=== PATIENT | female | born 1960 | race Caucasian/White ===

== ENCOUNTER 2018-11-11 22:28 | Emergency (ER) | payer OTHER ==
[~2018-11-11] VITALS: Ht 167.6 cm; Wt 89.4 kg
[~2018-11-11 22:28] MED LIST: ATIVAN2 M1 PO; CREON1 CAP PO; CYCLOBENZAPRINE10 M2 PO; DIL4 PO; ERYTHROMYCIN STEARATE PO; EST1 PO; FEXOFENADINE180 MG PO; FOLIC ACID PO; K10 PO; LANTI SQ; LEV500 PO; MASON25 MG PO; NOR10T PO; PRI20 PO; PROAIR HFA0.09 MG/Ac; SAVELLA100 MG; VITD PO; ZES10 PO; [UNRECOGNIZED DRUG - REMARK] PO
[2018-11-11 22:36] VITALS: Ht 167.6 cm; Wt 89.4 kg
[2018-11-12 00:13] LABS: BASOPHIL % 0.4 % (0-2); PLATELET COUNT 163 x10^3mcL (130-400); RED CELL DISTRIBUTION WIDTH 14.2 % (11.5-14.5)
[2018-11-12 00:49] LABS: CALCIUM 8.3 mg/dL (8.5-10.1); CARBON DIOXIDE 24.1 mmol/L (21-32); CHLORIDE SERUM 106 mmol/L (98-107); GFR1 > 60 mL/min; GLUCOSE SERUM 241 mg/dL (74-106); POTASSIUM SERUM 3.7 mmol/L (3.5-5.1); SODIUM SERUM 142 mmol/L (136-145)
[2018-11-12 05:27] VITALS: BP 169/80
== END 2018-11-12 05:27 | disposition home or self-care (01) ==
LOC: ED 22:28
PROVIDERS: Emergency Medicine
DX: R07.89 Other chest pain (principal); M54.2 Cervicalgia; R53.1 Weakness; I10 Essential (primary) hypertension; E11.9 Type 2 diabetes mellitus without complications; M32.9 Systemic lupus erythematosus, unspecified; Z86.73 Personal history of transient ischemic attack (TIA), and cerebral infarction without residual deficits; Z88.6 Allergy status to analgesic agent; Z88.8 Allergy status to other drugs, medicaments and biological substances
CPT/HCPCS: 36569; J1642; J1885; Q0092; Q9967